=== PATIENT | male | born 1985 | race Caucasian/White ===

== ENCOUNTER 2024-03-08 17:24 | Emergency (ER) | payer MEDICAID ==
[~2024-03-08] VITALS: Ht 175.3 cm; Wt 86.4 kg
[2024-03-08 17:39] VITALS: BP 149/102; PULSE 100; RESP 18; TEMP 98.5; O2SAT 100
[2024-03-08] MEDS ORDERED: LIDOcaine 1% W/epiNEPHrine 1:200,000 10ml vial IJ ONE (18:55)
[2024-03-08] MEDS: bacitracin 15gm ointment TP ONE (19:17)
[2024-03-08] MEDS: LIDOcaine 1% W/epiNEPHrine 1:100,000 20ml vial IJ ONE (19:39)
== END 2024-03-08 19:59 | disposition home or self-care (01) ==
LOC: ER 17:24
DX: S61.412A Laceration without foreign body of left hand, initial encounter (principal); W45.8XXA Other foreign body or object entering through skin, initial encounter; Y93.89 Activity, other specified; Y92.89 Other specified places as the place of occurrence of the external cause; Y99.8 Other external cause status
CPT/HCPCS: 12001; 73130; 99283; J7030; A6258